=== PATIENT | male | born 1980 | race Two or more races ===

== ENCOUNTER 2020-04-28 11:31 | Outpatient (REF) | payer OTHER, SELFPAY | END 2020-04-28 11:32 | disposition home or self-care (01) | LOC: HO.LAB 11:31 | PROVIDERS: PCP Internal Medicine; Visit Provider Internal Medicine | DX: Z20.828 Contact with and (suspected) exposure to other viral communicable diseases (principal) | CPT/HCPCS: C9803; U0003 ==

== ENCOUNTER 2020-09-04 10:00 | Outpatient (REF) | payer OTHER, SELFPAY | END 2020-09-04 10:01 | disposition home or self-care (01) | LOC: HO.LAB 10:00 | PROVIDERS: Visit Provider Internal Medicine | DX: Z20.822 Contact with and (suspected) exposure to COVID-19 (principal) | CPT/HCPCS: C9803; U0003; U0005 ==

== ENCOUNTER 2021-06-27 16:51 | Emergency (ER) | payer OTHER, SELFPAY ==
[2021-06-27 16:55] VITALS: RESP 18; BMI 28.7
--- NOTE | 2021-06-27 17:33 | ED_ITS ---
HPI - Skin/Abscess/Foreign Bdy General Chief complaint: Skin/Abscess/Foreign Body Stated complaint: came in contact w. scabies/ covid Time Seen by Provider: 06/27/21 17:33 Source: patient Mode of arrival: ambulatory Limitations: no limitations History of Present Illness HPI narrative: Patient is a 41 year old male presenting to the emergency department today after being exposed to scabies, requesting treatment. Patient states that he currently lives in a [facility], where he was exposed to scabies and he would like to be treated. Patient denies any dizziness, lightheadedness, abdominal pain, nausea, vomiting, fever, chills, blurry vision, double vision, loss of vision, chest pain, difficulty breathing, shortness of breath, back pain, night sweats, pain with urination, increased urinary frequency, increased urinary urgency, blood in his urine or stool, syncope or a near syncopal episode, recent trauma or falls, bowel incontinence, bladder incontinence, bowel retention, bladder retention, or any other complaints at this time. Exacerbating factors: none Context: none Associated symptoms: denies other symptoms Treatments prior to arrival: none Related Data Previous Rx's Medication Instructions Recorded ivermectin 3 mg tablet 15 mg PO DAILY 1 Days #1 tab 06/27/21 Allergies Allergy/AdvReac Type Severity Reaction Status Date / Time No Known Allergies Allergy Verified 06/27/21 17:33 Review of Systems Verdana 4l Constitutional: Verdana 4d Verdana 4d Constitutional: Verdana 4d Reports no additional constitutional complaints, Denies chills, Denies fever(s) and Denies night sweats Verdana 4l Eyes: Verdana 4d Verdana 4d Eyes: Verdana 4d Reports no additional eye complaints, Denies blurry vision, Denies change in vision, Denies diplopia, Denies eye discharge, Denies loss of vision and Denies eye pain Verdana 4l ENT: Verdana 4d Denies dizziness Verdana 4l Cardiovascular: Verdana 4d Verdana 4d Cardiovascular: Verdana 4d Reports no additional cardiovascular complaints, Denies chest pain, Denies lightheadedness, Denies Loss of Consciousness and Denies dyspnea Verdana 4l Respiratory: Verdana 4d Verdana 4d Respiratory: Verdana 4d Reports no additional respiratory complaints and Denies dyspnea Verdana 4l Gastrointestinal: Verdana 4d Verdana 4d Gastrointestinal: Verdana 4d Reports no additional gastrointestinal complaints, Denies abdominal pain, Denies melena, Denies hematochezia, Denies change in bowel habits and Denies change in stool character Verdana 4l Genitourinary: Verdana 4d Verdana 4d Genitourinary: Verdana 4d Reports no additional male genitourinary complaints, Denies hematuria, Denies oliguria, Denies difficulty urinating, Denies dysuria, Denies urinary frequency, Denies urinary hesitancy, Denies urinary incontinenceincontinence and Denies urinary urgency Musculoskeletal: Musculoskeletal: Reports no additional musculoskeletal complaints, Denies numbness and Denies tingling Neurologic: Denies dizziness, Denies loss of vision, Denies numbness and Denies tingling Psychiatric: Psychiatric: Reports no additional psychiatric complaints Endocrine: Endocrine: Reports no additional endocrine complaints Hematologic/Lymphatic: Hematologic/Lymphatic: Reports no additional hematologic/lymphatic complaints Allergic/Immunologic: Allergic/Immunologic: Reports no additional allergic/immunologic complaints PMFSH Past Medical History Attestation statement: The following information was validated with the patient. Source: old records reviewed Social History Social History Advance Directives: No Advance Directives Information Provided: No Physical Exam Verdana 4l Vital Signs: Verdana 4d Verdana 4d Vital Signs: Verdana 4d Verdana 4Bd Last Vital Signs Verdana 4d Decorating Consultant New 4d Decorating Consultant New 4d Resp 18 06/27/21 16:55 Verdana 4d Verdana 4Bd BMI result Decorating Consultant New 4d Decorating Consultant New 4d Decorating Consultant NewNew 4d Body Mass Index 28.7 Const: General: cooperative, no acute distress, alert and awake Nutritional Appearance: well nourished Orientation/consciousness: patient oriented x3 Limitations: no limitations HENMT: Head: Yes normal to inspection and Yes atraumatic Ears: hearing grossly normal bilaterally and external ears normal General nose exam: Normal external nose present, no nasal discharge noted and no epistaxis Face and sinus: Yes normal facial exam, No abrasion and No laceration Mouth: Normal oral and palatal mucosa present, no drooling and no muffled voice Eyes: General: appearance normal, both eyes and all related structures Periorbital: periorbital findings normal Eyelids: Yes eyelids normal Conjunctivae: conjunctivae normal Pupils: Equal, round and reactive pupils present EOM: EOMs intact bilaterally Neck: Neck: Yes normal visual inspection, Yes full ROM and Yes no lymphadenopathy Chest: Chest palpation & inspection: normal inspection of the chest Resp: Effort & Inspection: normal respiratory effort and able to speak in complete sentences Auscultation: clear to auscultation bilaterally Cardio: Rate: regular rate Rhythm: regular rhythm GI: Inspection: Yes normal to inspection Neuro: General: patient oriented x3 and moves all extremities Cranial nerves: Yes Equal, round and reactive pupils present Cognition (Neuro): normal cognition Motor exam (neuro): 5/5 motor strength present throughout Sensory Exam: Normal double simultaneous stimulation for sensation Coordination: [id number] test normal Extrem: General: Yes normal to inspection, Yes full ROM and Yes capillary refill normal Psych: Appearance: grossly normal Mental Status: mental status grossly normal Affect: normal affect Attitude: cooperative Thought process: Normal thought process present Thought content: Normal thought content present Insight: Good insight present (Psych) MDM - Skin/Abscess/Foreign Bdy MDM Narrative Medical decision making narrative: Patient is a 41 year old male presenting to the emergency department today requesting scabies treatment after an exposure. Patient's physical exam was unremarkable. I explained my physical exam findings to the patient. I answered all questions asked by the patient. Patient received an oral dose of Ivermectin here in the department with another dose prescribed to be taken in 1 week. I stressed the importance of the patient taking his medication as prescribed. I stressed the importance of the patient following up with his primary care provider. I stressed the importance of the patient returning to the emergency department immediately if his symptoms were to worsen or if he were to develop any dizziness, shortness of breath, difficulty breathing, chest pain, blurry vision, loss of vision, nausea, vomiting, abdominal pain, fever, chills, back pain, or any other complaints. Patient verbalized agreement and understanding with this treatment plan and discharge. Differential Diagnosis Differential diagnosis: Likely insect bites (scabies, bed bugs) Medical Records Attestation: I reviewed the patient's medical records. Discharge Plan Discharge Clinical Impression: Scabies, Scabies exposure Patient Disposition: Home, Self-Care Instructions: Scabies (ED) Additional Instructions: Follow up with your primary care provider. Return to the emergency department immediately if your symptoms worsen or if you develop any dizziness, shortness of breath, difficulty breathing, chest pain, blurry vision, loss of vision, nausea, vomiting, abdominal pain, fever, chills, back pain, or any other complaints. Prescriptions: New ivermectin 3 mg tablet 15 mg PO DAILY 1 Days Qty: 1 0RF Rx Instructions: Take on 07/04/2021 Referrals: Kaitlin Maloney MD [Primary Care Provider] - 2 days Print Language: Wallisian
== END 2021-06-27 18:21 | disposition home or self-care (01) ==
PROVIDERS: Emergency Provider Emergency Medicine Emergency Medical Services; PCP Internal Medicine
DX: B86 Scabies (principal); Z79.899 Other long term (current) drug therapy
CPT/HCPCS: 99283

== ENCOUNTER → 2021-07-28 10:49 | Outpatient (BNVA) | payer OTHER, SELFPAY | PROVIDERS: PCP Internal Medicine; Referring Provider Internal Medicine; Visit Provider Internal Medicine Cardiovascular Disease | DX: I25.5 Ischemic cardiomyopathy (principal); R06.00 Dyspnea, unspecified; Z95.1 Presence of aortocoronary bypass graft | CPT/HCPCS: 93005; 99212 ==

== ENCOUNTER → 2021-09-21 14:10 | Outpatient (REF) | payer OTHER, SELFPAY ==
--- NOTE | 2021-09-21 14:15 | CA_ITS ---
Transthoracic Echocardiogram Patient (Last, First, Middle): Wagner Lancaster, Gender: Male Date of : 1980 Age: 41 Procedure Date: 09/21/2021 Procedure Type: Transthoracic Echocardiogram Location: OP Height: 177.8 cm Weight: 94.8 kg BSA: 2.13 m2 Heart Rate: bpm BP: 128 / 75 mmHg Journeyman Wireman: TO/VH Referring MD: Tenzin Torres MD Symptoms: I25.5 - Ischemic cardiomyopathy Study Quality: Fair Conclusions: - Normal left ventricular cavity size. There is normal left ventricular wall thickness. The left ventricular systolic function is mild to moderately decreased. The visually estimated ejection fraction is between 35-40%. - The inferoseptal wall and apical septum segment are hypokinetic. - The inferior wall, the apex, basal anteroseptal, and mid anteroseptal segments are akinetic. - There is mildly decreased right ventricular systolic function. - The left atrium is moderately dilated. Findings Procedure Information Contrast agent, definity, is being given per protocol without apparent complications. Left Ventricle Normal left ventricular cavity size. There is normal left ventricular wall thickness. The left ventricular systolic function is mild to moderately decreased. The visually estimated ejection fraction is between 35-40%. There is evidence of regional wall motion abnormalities. Abnormal diastolic function is noted. E/E prime ratio is between 8 and 15 consistent with indeterminate filling pressures. Wall Motion Rest Echo Findings The inferoseptal wall and apical septum segment are hypokinetic. The inferior wall, the apex, basal anteroseptal, and mid anteroseptal segments are akinetic. Right Ventricle Normal right ventricular cavity size. There is mildly decreased right ventricular systolic function. Atria The left atrium is moderately dilated. Aortic Valve The aortic valve was not well visualized. There is no aortic valve stenosis. There is no aortic valve regurgitation. Mitral Valve The mitral valve appears normal. There is mild to moderate mitral valve regurgitation. There is no mitral valve stenosis. Pulmonic Valve The pulmonic valve is likely normal. There is trace pulmonic valve regurgitation. Tricuspid Valve Normal tricuspid valve structure. There is trace tricuspid valve regurgitation. Mildly elevated right atrial pressure. There is no evidence of pulmonary hypertension. Great Vessels All visible segments of the aorta are normal in size. The visualized portions of the pulmonary artery and branches are normal. Venous The inferior vena cava is normal in size and collapses less than 50% with inspiration. Pericardium/Pleural There is no evidence of pericardial effusion. Prior Study Comparison No prior study available for comparison. Measurements 2D Linear Measurements IVSd: 1.01 0.6-0.9/0.6-1.0 cm LVIDd: 5.50 3.9-5.3/4.2-5.9 cm LVIDd Index: 2.58 2.4-3.2/2.2-3.1 cm/m2 LVIDs: 5.08 2.0-3.6 cm LVPWd: 1.06 0.7-1.1 cm LA Diam: 4.80 2.7-3.8/3.0-4.0 cm LAIDs Index: 2.25 1.5-2.3 cm/m2 LV Mass: 278.12 67-162/88-224 g LV Mass Index: 130.57 43-95/49-115 g/m2 LVOT Diam: 2.20 3.0+(-)1.3 cm 2D Systolic Function EF 4C: 45.60 >55% EF 2C: 30.50 >55% Mitral Valve MV Pk E: 0.82 MV PK A: 0.79 MV Decel Time: 147.00 E/A: 1.00 E'Lateral: 13.60 E'Medial: 5.44 E/E' Med: 15.10 E/E' Lat: 6.10 PHT: 43.00 MVA PHT: 5.12 Decel Anson: 5.59 Aortic Valve AoV Pk Ángel: 1.44 AoV Mn Ángel: 1.01 AoV VTI: 0.25 AoV Pk Grad: 8.00 Aov Mn Grad: 5.00 JUSTIN Cont.VTI: 2.14 LVOT LVOT Pk Ángel: 0.86 LVOT Mn Ángel: 0.53 LVOT VTI: 0.14 LVOT Pk Grad: 3.00 LVOT Mn Grad: 1.00 LVOT Diam: 2.20 LVOT Area: 3.80 Diastolic Function MV Pk E: 0.82 MV Pk A: 0.79 E/A: 1.00 E'Medial: 5.44 E/E' Med: 15.10 E' Laterial: 13.60 E/E' Lat: 6.10 Right Ventricle TAPSE (mm): 13.60 TVS' Ángel: 7.18 Tricuspid Valve TR Pk Ángel: 2.23 TR Pk Grad: 20.00 RA Press: 3.00 RVSP: 23.00 Great Vessels Aorta Sinus of Valsalva: 3.38 2.0-3.[address] Ridge: 2.33 1.7-3.4 cm Ao Asc: 2.80 2.1-3.4 cm Ao Arch: 3.60 Updated in Other Vendor System with Status of Final Tenzin Torres MD electronically signed on 09/25/2021 11:50:24 PM with status of Final
== END ==
LOC: HO.CARD 14:10
PROVIDERS: PCP Internal Medicine; Visit Provider Internal Medicine Cardiovascular Disease
DX: I25.5 Ischemic cardiomyopathy (principal)
CPT/HCPCS: 93306; Q9957

== ENCOUNTER 2023-05-29 13:30 | Emergency (ER) | payer OTHER, SELFPAY ==
[2023-05-29 13:51] VITALS: BP 155/92; PULSE 87; RESP 17; TEMP 36; O2SAT 99; BMI 29.1
--- NOTE | 2023-05-29 13:52 | ED_ITS ---
HPI - General Adult General Chief complaint: Extremity Problem Stated complaint: Neuropathy-cant walk Source: patient Mode of arrival: ambulatory Limitations: no limitations History of Present Illness HPI narrative: Patient is a 42 year old assigned male at with a history of CABG and ischemic cardiomyopathy presenting to the emergency department today with left lower leg itching and pain. Patient states that over the last few months he has had tingling pain and itchiness in his left lower leg. Patient denies any dizziness, lightheadedness, abdominal pain, nausea, vomiting, fever, chills, blurry vision, double vision, loss of vision, chest pain, difficulty breathing, shortness of breath, back pain, night sweats, pain with urination, increased urinary frequency, increased urinary urgency, blood in his urine or stool, syncope or a near syncopal episode, recent trauma or falls, bowel incontinence, bladder incontinence, bowel retention, bladder retention, or any other complaints at this time. Onset (ago): month(s) Location: left and lower extremity Radiation: non-radiation Severity: mild Severity scale (1-10): 3 Pain Consistency: intermittent Relieving factors: none Exacerbating factors: none Associated symptoms: denies other symptoms Treatments prior to arrival: none Related Data Home Medications Medication Instructions Recorded Confirmed aspirin 81 mg tablet,delayed 81 mg PO DAILY 07/28/21 07/28/21 release atorvastatin 80 mg tablet 80 mg PO DAILY 07/28/21 07/28/21 bupropion HCl 300 mg 24 hr tablet, 300 mg PO DAILY 07/28/21 07/28/21 extended release buspirone 5 mg tablet 5 mg PO BID 07/28/21 07/28/21 carvedilol 3.125 mg tablet 3.125 mg PO BID 07/28/21 07/28/21 clopidogrel 75 mg tablet 75 mg PO DAILY 07/28/21 07/28/21 cyclobenzaprine 10 mg tablet 10 mg PO TID PRN muscle spasm 07/28/21 07/28/21 escitalopram oxalate 20 mg tablet 20 mg PO DAILY 07/28/21 07/28/21 gabapentin 400 mg capsule 400 mg PO TID 07/28/21 07/28/21 lisinopril 10 mg tablet 10 mg PO DAILY 07/28/21 07/28/21 lorazepam 1 mg tablet 1 mg PO BID 07/28/21 07/28/21 metformin 1,000 mg tablet 1,000 mg PO BID 07/28/21 07/28/21 trazodone 100 mg tablet 100 mg PO BEDTIME 07/28/21 07/28/21 Previous Rx's Medication Instructions Recorded ivermectin 3 mg tablet 15 mg (5 x 3 mg) PO DAILY 1 day #1 06/27/21 tab Allergies Allergy/AdvReac Type Severity Reaction Status Date / Time No Known Allergies Allergy Verified 07/28/21 11:01 Review of Systems 2 Constitutional: Constitutional: Reports no additional constitutional complaints, Denies chills, Denies fever(s) and Denies night sweats Eyes: Eyes: Reports no additional eye complaints, Denies blurry vision, Denies change in vision, Denies diplopia, Denies eye discharge, Denies loss of vision and Denies eye pain ENT: Denies dizziness Cardiovascular: Cardiovascular: Reports no additional cardiovascular complaints, Denies chest pain, Denies lightheadedness, Denies Loss of Consciousness and Denies dyspnea Respiratory: Respiratory: Reports no additional respiratory complaints and Denies dyspnea Gastrointestinal: Gastrointestinal: Reports no additional gastrointestinal complaints, Denies abdominal pain, Denies melena, Denies hematochezia, Denies change in bowel habits and Denies change in stool character Genitourinary: Genitourinary: Reports no additional male genitourinary complaints, Denies hematuria, Denies oliguria, Denies difficulty urinating, Denies dysuria, Denies urinary frequency, Denies urinary hesitancy, Denies urinary incontinence and Denies urinary urgency Musculoskeletal: Musculoskeletal: Reports no additional musculoskeletal complaints, Denies numbness and Denies tingling Comments: left lower leg burning and itching Neurologic: Denies dizziness, Denies loss of vision, Denies numbness and Denies tingling Psychiatric: Psychiatric: Reports no additional psychiatric complaints Endocrine: Endocrine: Reports no additional endocrine complaints Hematologic/Lymphatic: Hematologic/Lymphatic: Reports no additional hematologic/lymphatic complaints Allergic/Immunologic: Allergic/Immunologic: Reports no additional allergic/immunologic complaints PMFSH Past Medical History Attestation statement: The following information was validated with the patient. Source: old records reviewed and nursing notes reviewed Onset Date is defined in the Problem List Problems that require an onset date and time if occurred within 24 hrs of arrival to the ED Aortic Dissection and Rupture; Neurologic impairment; Cardiopulmonary Arrest; Endotracheal Intubation; Insertion or Replacement of Mechanical Circulatory Assist Device Surgical History History of cardiac cath History of open heart surgery Family History Family History Mother No problems noted. Father Diabetes Social History Social History Alcohol intake: current Alcohol intake frequency: holidays/special occasions only Patient Tobacco Use Status: Former Tobacco user Quit Date: 2018 Years Smoked: 15 +/- Advance Directives: No Advance Directives Information Provided: No Physical Exam ED Vital Signs: BMI result Body Mass Index 29.1 Const General: cooperative, no acute distress, alert and awake Nutritional Appearance: well nourished Orientation/consciousness: patient oriented x3 Limitations: no limitations HENMT Head: Yes normal to inspection and Yes atraumatic Ears: hearing grossly normal bilaterally and external ears normal General nose exam: Normal external nose present, no nasal discharge noted and no epistaxis Face and sinus: Yes normal facial exam, No abrasion and No laceration Mouth: Normal oral and palatal mucosa present, no drooling and no muffled voice Eyes General: appearance normal, both eyes and all related structures Periorbital: periorbital findings normal Eyelids: Yes eyelids normal Conjunctivae: conjunctivae normal Pupils: Equal, round and reactive pupils present EOM: EOMs intact bilaterally Neck Neck: Yes normal visual inspection, Yes full ROM and Yes no lymphadenopathy Chest Chest palpation & inspection: normal inspection of the chest Resp Effort & Inspection: normal respiratory effort and able to speak in complete sentences GI Inspection: Yes normal to inspection Neuro General: patient oriented x3 and moves all extremities Cranial nerves: Yes Equal, round and reactive pupils present Cognition (Neuro): normal cognition Motor exam (neuro): 5/5 motor strength present throughout Sensory Exam: Normal double simultaneous stimulation for sensation Coordination: [id number] test normal Extrem Other: multiple excoriation type lesions to the anterior left lower leg, no active bleeding, no warmth, no erythema. General: Yes full ROM and Yes capillary refill normal Psych Appearance: grossly normal Mental Status: mental status grossly normal Affect: normal affect Attitude: cooperative Thought process: Normal thought process present Thought content: Normal thought content present Insight: Good insight present (Psych) Course Course Course Narrative: RME performed by Corrie Gallardo PA-C. Patient is a 42 year old assigned male at presenting to the emergency department with left leg pain and swelling. Detailed physical exam and review of systems are deferred to the primary education professor. Labss ordered. Patient placed back in the waiting room pending room availability and results. Medical Decision Making Medical Decision Making [facility] Narrative: Patient is a 42 year old assigned male at with a history of ischemic cardiomyopathy and CABG presenting to the emergency department today with left lower leg itching and burning pain. Patient's limited physical exam performed in triage was as noted in the physical exam portion of this note. Patient's blood work showed a mildly elevated WBC count, ESR, and CRP but were otherwise unremarkable. Patient left the department without completing treatment. Patient left the department before myself or any of the other emergency department clinicians could review or explain physical exam findings, test results, need or lack there of for additional testing, treatment options, or a treatment plan. Differential Diagnosis Differential Diagnoses: The differential diagnosis associated with the presentation includes Left lower leg itching and pain Admission/Observation Consideration of admission/observation: Escalation of care including admission/observation considered Patient would have been admitted to the hospital had his work up had any findings where hospital admission was appropriate, his clinical presentation warranted hospital admission, and he hadn't left the department. Lab Data [facility] Lab Attestation statement: I reviewed the patient's lab results. My interpretation of these results are in the MDM Rationale portion of this note. 05/29/23 14:33 05/29/23 14:32 Labs: Lab Results 05/29/23 05/29/23 Range/Units 14:32 14:33 WBC 12.0 H (4.8-10.8) X10*3/uL RBC 4.74 (4.60-5.80) X10*6/uL Hgb 14.6 (14.0-18.0) g/dl Hct 43.2 (42.0-52.0) % MCV 91.1 (80.0-98.0) fL MCH 30.8 (27.0-33.0) pg MCHC 33.8 (31.0-36.0) g/dl RDW 12.6 (11.0-16.0) % Plt Count 386 (160-400) X10*3/uL MPV 9.3 L (9.4-12.4) fL Immature Gran % (Auto) 0.2 (0.0-0.4) % Neut % (Auto) 66.3 (45-73) % Lymph % (Auto) 25.1 (20-40) % [place] % (Auto) 7.0 (2-11) % Eos % (Auto) 1.2 (0-4) % Baso % (Auto) 0.2 (0-2) % Lymph # (Auto) 3.0 (1.2-4.9) X10*3/uL [place] # (Auto) 0.8 (0.1-1.2) X10*3/uL Eos # (Auto) 0.1 (0.0-0.4) X10*3/uL Baso # (Auto) 0.0 (0.0-0.2) X10*3/uL Abs Immat Gran (auto) 0.03 (0.00-0.03) X10*3/uL Absolute Neuts (auto) 8.0 (2.0-8.3) x10*3/uL Absolute Nucleated RBC 0.000 (0.0-0.012) X10*3/uL Nucleated RBC % (auto) 0.0 (0.0-0.2) /100WBC ESR 26 H (0-15) MM/HR Sodium 135 (135-145) mmol/L Potassium 4.1 (3.3-5.1) mmol/L Chloride 103 (96-108) mmol/L Carbon Dioxide 24 (22-29) mmol/L Anion Gap 12 (12-20) BUN 15 (9-16) mg/dL Creatinine 1.05 (0.5-1.4) mg/dL Estim Creat Clear Calc 105.5 Estimated GFR > 60 Random Glucose 121 H (60-115) mg/dL Calcium 9.9 (8.4-10.2) mg/dL Magnesium 1.9 (1.6-2.6) mg/dL Total Bilirubin 0.6 (0.0-1.0) mg/dL AST 17 (5-37) U/L ALT 15 (0-40) U/L Alkaline Phosphatase 105 (39-117) U/L C-Reactive Protein 0.55 H (< or = 0.50) mg/dL Total Protein 7.6 (6.5-8.0) g/dL Albumin 4.5 (3.5-5.0) g/dL Discharge Plan Discharge Clinical Impression: Acute leg pain Patient Disposition: Left W/O Completing Treatment Prescriptions: No Action ivermectin 3 mg tablet 15 mg PO DAILY 1 Days Qty: 1 0RF Rx Instructions: Take on 07/04/2021 metformin 1,000 mg tablet 1,000 mg PO BID atorvastatin 80 mg tablet 80 mg PO DAILY gabapentin 400 mg capsule 400 mg PO TID buspirone 5 mg tablet 5 mg PO BID aspirin 81 mg tablet,delayed release (DR/EC) 81 mg PO DAILY clopidogrel 75 mg tablet 75 mg PO DAILY lisinopril 10 mg tablet 10 mg PO DAILY cyclobenzaprine 10 mg tablet 10 mg PO TID PRN (Reason: muscle spasm) lorazepam 1 mg tablet 1 mg PO BID bupropion HCl 300 mg tablet extended release 24 hr 300 mg PO DAILY escitalopram oxalate 20 mg tablet 20 mg PO DAILY trazodone 100 mg tablet 100 mg PO BEDTIME carvedilol 3.125 mg tablet 3.125 mg PO BID Discharge Date/Time: 05/29/23 23:56
== END 2023-05-29 23:56 | disposition left against medical advice (07) ==
PROVIDERS: Emergency Provider Emergency Medicine; PCP Internal Medicine
DX: M79.605 Pain in left leg (principal); Z79.899 Other long term (current) drug therapy
CPT/HCPCS: 36415; 80053; 83735; 85025; 85652; 86140; 99281; 99283

== ENCOUNTER 2023-05-31 09:27 | Emergency (ER) | payer OTHER, SELFPAY ==
--- NOTE | ~2023-05-31 | US_ITS ---
EXAMINATION: US VENOUS ULTRASOUND WITH DOPPLER LOWER EXTREMITY, LEFT CLINICAL INFORMATION: Swelling, erythema COMPARISON: None available. TECHNIQUE: Ultrasound of the deep veins is performed from the hip to the calf with compression sonography and color and pulse Doppler assessment. Spectral analysis with color-flow imaging is performed. FINDINGS: The common femoral vein is compressible and exhibits a normal phasic waveform; this suggests that the iliac veins are widely patent above. Within the proximal thigh, the visualized profunda femoris vein is normal. The examined greater saphenous vein and saphenofemoral junction are normal. Superficial femoral vein is patent in the proximal, mid and distal thigh. Popliteal vein is normal to the level of the trifurcation. On compression soler scale and color Doppler images, the posterior tibial and peroneal veins of the calf are normal. A left inguinal lymph node is in the normal size range at 0.8 cm short axis dimension. US/US venous duplex LE LT IMPRESSION: No evidence of deep vein thrombosis.
--- NOTE | ~2023-05-31 | XR_ITS ---
EXAMINATION: XR TIBIA AND FIBULA, LEFT CLINICAL INFORMATION: Erythema, warmth and multiple wounds COMPARISON: None available. TECHNIQUE: AP and lateral views of the left tibia and fibula were obtained. FINDINGS: The bones and soft tissues are normal. No fracture. No osseous lesions. Tiny probable phleboliths noted in the left mid calf. XR/XR tibia fibula LT 2V IMPRESSION: Normal left tibia and fibula.
[2023-05-31 09:49] VITALS: BP 144/95; PULSE 89; RESP 16; TEMP 36.5; O2SAT 98; BMI 29.4
--- NOTE | 2023-05-31 10:24 | ED_ITS ---
HPI - General Adult General Chief complaint: Extremity Injury, Lower Stated complaint: Pain left leg Time Seen by Provider: 05/31/23 10:23 Source: patient Mode of arrival: ambulatory Limitations: no limitations History of Present Illness HPI narrative: Patient is a 42-year-old male with history of T2DM, CABG, cardiomyopathy presenting to the ED with complaint of left lower leg redness, pain and swelling. He reports diffuse ulcerations to bilateral lower legs for the past month, unsure of etiology. States that over the past week the erythema and swelling have worsened, has developed some swelling and tingling to left foot. Denies fevers. Denies drainage from wounds. Came here on 05/29/23, had labs drawn but left from the waiting room due to long wait time. MD complaint: left leg pain Onset (ago): week(s) Location: left and lower extremity Radiation: non-radiation Severity: moderate Quality: burning Pain Consistency: colicky Relieving factors: rest Exacerbating factors: movement and other (palpation) Associated symptoms: denies other symptoms Treatments prior to arrival: none Related Data Home Medications Medication Instructions Recorded Confirmed aspirin 81 mg tablet,delayed 81 mg PO DAILY 07/28/21 07/28/21 release atorvastatin 80 mg tablet 80 mg PO DAILY 07/28/21 07/28/21 bupropion HCl 300 mg 24 hr tablet, 300 mg PO DAILY 07/28/21 07/28/21 extended release buspirone 5 mg tablet 5 mg PO BID 07/28/21 07/28/21 carvedilol 3.125 mg tablet 3.125 mg PO BID 07/28/21 07/28/21 clopidogrel 75 mg tablet 75 mg PO DAILY 07/28/21 07/28/21 cyclobenzaprine 10 mg tablet 10 mg PO TID PRN muscle spasm 07/28/21 07/28/21 escitalopram oxalate 20 mg tablet 20 mg PO DAILY 07/28/21 07/28/21 gabapentin 400 mg capsule 400 mg PO TID 07/28/21 07/28/21 lisinopril 10 mg tablet 10 mg PO DAILY 07/28/21 07/28/21 lorazepam 1 mg tablet 1 mg PO BID 07/28/21 07/28/21 metformin 1,000 mg tablet 1,000 mg PO BID 07/28/21 07/28/21 trazodone 100 mg tablet 100 mg PO BEDTIME 07/28/21 07/28/21 Previous Rx's Medication Instructions Recorded ivermectin 3 mg tablet 15 mg (5 x 3 mg) PO DAILY 1 day #1 06/27/21 tab cephalexin 500 mg capsule 500 mg PO QID #40 caps 05/31/23 doxycycline hyclate 100 mg tablet 100 mg PO BID #20 tabs 05/31/23 Allergies Allergy/AdvReac Type Severity Reaction Status Date / Time No Known Allergies Allergy Verified 07/28/21 11:01 Review of Systems 2 Review of Systems: As per HPI. Yes all other systems are reviewed and are negative Constitutional: Constitutional: Reports as per HPI [facility] Past Medical History Onset Date is defined in the Problem List Problems that require an onset date and time if occurred within 24 hrs of arrival to the ED Aortic Dissection and Rupture; Neurologic impairment; Cardiopulmonary Arrest; Endotracheal Intubation; Insertion or Replacement of Mechanical Circulatory Assist Device Surgical History History of cardiac cath History of open heart surgery Family History Family History Mother No problems noted. Father Diabetes Social History Social History Alcohol intake: current Alcohol intake frequency: holidays/special occasions only Patient Tobacco Use Status: Former Tobacco user Quit Date: 2018 Smoked: 15 +/- Advance Directives: No Advance Directives Information Provided: Yes Physical Exam ED Vital Signs: Vital Signs - 24 hr 05/31/23 09:49 05/31/23 12:03 Temperature 97.7 F 98.5 F Pulse Rate 89 70 Respiratory Rate 16 20 Blood Pressure 144/95 H 132/82 Pulse Oximetry 98 98 Oxygen Delivery Method Room Air Room Air BMI result Body Mass Index 29.4 Vital signs have been reviewed and appear to be correct. Blood pressure elevated. Heart rate normal. Respiratory rate normal. Temperature normal. Oxygen saturation normal. Const General: cooperative, healthy appearing and no acute distress Orientation/consciousness: oriented to person, oriented to place, oriented to time and patient oriented x3 Limitations: no limitations HENMT Head: Yes normocephalic and Yes atraumatic Ears: external ears normal General nose exam: Normal external nose present Face and sinus: Yes face symmetric Mouth: oropharynx normal and moist mucous membranes Throat: Yes uvula midline Eyes Pupils: Equal, round and reactive pupils present Neck Neck: Yes normal visual inspection and Yes supple Resp Effort & Inspection: normal respiratory effort and able to speak in complete sentences Auscultation: clear to auscultation bilaterally Cardio Rate: regular rate Rhythm: regular rhythm Heart sounds: S1 normal heart sound present and S2 normal heart sound present GI Palpation (GI): Soft to palpation and nontender Auscultation: normoactive bowel sounds General: Yes no CVA tenderness Back/Spine/Pelvis Back: no CVA tenderness Skin General skin exam: elasticity normal and turgor normal Neuro General: oriented to person, oriented to place, oriented to time, patient oriented x3, moves all extremities, no focal motor deficits and CN's II-XI intact bilaterally Cranial nerves: Yes Equal, round and reactive pupils present Cognition (Neuro): normal cognition Extrem Other: General: Yes full ROM and Yes no calf tenderness Left lower extremity: lower leg Details: tenderness Location: not of the posterior calf, warmth Location: of the mid lower leg (anterior) and other (multiple lesions with dry, scaly centers, lesion to anterior nayak with surrounding erythema and warmth, scant serosanguinous drainage, see attached photo); no palpable cords and foot Details: vascular exam Details: dorsalis pedis pulse present (2+) and posterior tibial pulse present (2+) Psych Mental Status: mental status grossly normal Affect: normal affect Thought process: Normal thought process present Medical Decision Making Medical Decision Making MDM Narrative: Patient is a 42-year-old male with history of T2DM, CABG, cardiomyopathy presenting to the ED with complaint of left lower leg redness, pain and swelling. On exam patient is awake, A+Ox3, BP elevated, VS otherwise WNL, afebrile, normal neurological exam without focal deficits, physical exam findings as above. Given reported symptoms and physical exam findings, initial differential includes cellulitis, DVT. Less likely osteomyelitis but will obtain x-ray, check ESR, CRP. Labs notable for mild leukocytosis, slightly improved since labs drawn on 05/29/23, CRP slightly elevated, ESR mildly elevated with little change from 05/29. Ultrasound negative for DVT. X-ray notable for no evidence of osteomyelitis. My interpretation is in agreement with the radiologist's interpretation. Will treat for cellulitis with doxycycline and cephalexin. Instructed patient to follow up with PCP and will refer to wound clinic. Return precautions discussed. Patient verbalized understanding of and agreement with plan. Differential Diagnosis Differential Diagnoses: The differential diagnosis associated with the presentation includes As per MDM. Admission/Observation Consideration of admission/observation: Escalation of care including admission/observation considered Lab Data [facility] Lab Attestation statement: I reviewed the patient's lab results. As per MDM. 05/31/23 10:50 05/31/23 10:50 Labs: Lab Results 05/31/23 Range/Units 10:50 WBC 11.3 H (4.8-10.8) X10*3/uL RBC 4.57 L (4.60-5.80) X10*6/uL Hgb 14.0 (14.0-18.0) g/dl Hct 41.7 L (42.0-52.0) % MCV 91.2 (80.0-98.0) fL MCH 30.6 (27.0-33.0) pg MCHC 33.6 (31.0-36.0) g/dl RDW 12.4 (11.0-16.0) % Plt Count 383 (160-400) X10*3/uL MPV 9.1 L (9.4-12.4) fL Immature Gran % (Auto) 0.4 (0.0-0.4) % Neut % (Auto) 67.2 (45-73) % Lymph % (Auto) 23.0 (20-40) % Evans % (Auto) 7.3 (2-11) % Eos % (Auto) 1.8 (0-4) % Baso % (Auto) 0.3 (0-2) % Lymph # (Auto) 2.6 (1.2-4.9) X10*3/uL Evans # (Auto) 0.8 (0.1-1.2) X10*3/uL Eos # (Auto) 0.2 (0.0-0.4) X10*3/uL Baso # (Auto) 0.0 (0.0-0.2) X10*3/uL Abs Immat Gran (auto) 0.04 H (0.00-0.03) X10*3/uL Absolute Neuts (auto) 7.6 (2.0-8.3) x10*3/uL Absolute Nucleated RBC 0.000 (0.0-0.012) X10*3/uL Nucleated RBC % (auto) 0.0 (0.0-0.2) /100WBC ESR 27 H (0-15) MM/HR Sodium 138 (135-145) mmol/L Potassium 4.0 (3.3-5.1) mmol/L Chloride 104 (96-108) mmol/L Carbon Dioxide 23 (22-29) mmol/L Anion Gap 15 (12-20) BUN 10 (9-16) mg/dL Creatinine 0.96 (0.5-1.4) mg/dL Estim Creat Clear Calc 116.0 Estimated GFR > 60 Random Glucose 140 H (60-115) mg/dL Lactic Acid 1.6 (0.5-2.0) mmol/L Calcium 9.7 (8.4-10.2) mg/dL C-Reactive Protein 0.62 H (< or = 0.50) mg/dL Independent Interpretation I performed an independent interpretation of an: Plain X-Ray and Ultrasound Interpretation: No evidence of DVT Radiology Impression Discussion of test interpretation with radiology: I have reviewed the radiologist's reading. Radiologist Impression: US/US venous duplex LE LT IMPRESSION: No evidence of deep vein thrombosis. External Record Review External record reviewed: Inpatient record, Office record and Outpatient record Prescription Management I considered prescription management with: Antibiotic Chronic Conditions Patient?s care impacted by: Diabetes Discharge Plan Discharge Clinical Impression: Cellulitis of left anterior lower leg Patient Disposition: Home, Self-Care Instructions: Cellulitis (DC) Additional Instructions: You have been evaluated in the emergency department today for skin infection, also known as cellulitis. Please take your prescribed antibiotics as directed for the full course of the medication. Assess the infected area daily and return for increasing redness, swelling, warmth, or thick yellow drainage. You can use Tylenol or ibuprofen per package instructions every 6 hours as needed for pain. If necessary, you can alternate these medications so that you can take one medication every 3 hours. For instance, at noon take ibuprofen, then at 3:00 p.m. take Tylenol, then at 6:00 p.m. take ibuprofen. Please schedule an appointment for follow-up with your primary care physician as soon as possible. Return to the emergency department if you experience recurrent vomiting, fevers greater than 100.4? F, increasing area of redness, warmth around the area, foul- smelling discharge from the area, increased tenderness around the area, or any other concerning symptoms. You are being referred to the Wound Care clinic for further management, please call to schedule an appointment. Prescriptions: New doxycycline hyclate 100 mg tablet 100 mg PO BID Qty: 20 0RF cephalexin 500 mg capsule 500 mg PO QID Qty: 40 0RF No Action ivermectin 3 mg tablet 15 mg PO DAILY 1 Days Qty: 1 0RF Rx Instructions: Take on 07/04/2021 metformin 1,000 mg tablet 1,000 mg PO BID atorvastatin 80 mg tablet 80 mg PO DAILY gabapentin 400 mg capsule 400 mg PO TID buspirone 5 mg tablet 5 mg PO BID aspirin 81 mg tablet,delayed release (DR/EC) 81 mg PO DAILY clopidogrel 75 mg tablet 75 mg PO DAILY lisinopril 10 mg tablet 10 mg PO DAILY cyclobenzaprine 10 mg tablet 10 mg PO TID PRN (Reason: muscle spasm) lorazepam 1 mg tablet 1 mg PO BID bupropion HCl 300 mg tablet extended release 24 hr 300 mg PO DAILY escitalopram oxalate 20 mg tablet 20 mg PO DAILY trazodone 100 mg tablet 100 mg PO BEDTIME carvedilol 3.125 mg tablet 3.125 mg PO BID Referrals: [facility] [place] Wound Care Management [Provider Group]
[2023-05-31 11:06] LABS: Basophils Percent Auto 0.3 % (0-2); Eosinophils Absolute Auto 0.2 X10*3/uL (0.0-0.4); Eosinophils Percent Auto 1.8 % (0-4); Hematocrit 41.7 % (42.0-52.0); Imm Gran Abs Auto 0.04 X10*3/uL (0.00-0.03); Imm Gran Pct Auto 0.4 % (0.0-0.4); Lymphocytes Absolute Auto 2.6 X10*3/uL (1.2-4.9); MANUAL DIFF FLAG NO; Mean Corpuscular HGB Conc 33.6 g/dl (31.0-36.0); Mean Corpuscular Hemoglobin 30.6 pg (27.0-33.0); Mean Corpuscular Volume 91.2 fL (80.0-98.0); Mean Platelet Volume 9.1 fL (9.4-12.4); Monocytes Absolute Auto 0.8 X10*3/uL (0.1-1.2); Monocytes Percent Auto 7.3 % (2-11); Neutrophils Absolute Auto 7.6 x10*3/uL (2.0-8.3); Neutrophils Percent Auto 67.2 % (45-73); Platelet Count 383 X10*3/uL (160-400); Red Blood Count 4.57 X10*6/uL (4.60-5.80); Red Cell Distribution Width 12.4 % (11.0-16.0); White Blood Count 11.3 X10*3/uL (4.8-10.8)
[2023-05-31 11:16] LABS: Lactic Acid 1.6 mmol/L (0.5-2.0)
[2023-05-31 11:20] LABS: Anion Gap 15 (12-20); Blood Urea Nitrogen 10 mg/dL (9-16); Calcium 9.7 mg/dL (8.4-10.2); Carbon Dioxide 23 mmol/L (22-29); Chloride 104 mmol/L (96-108); Estimated Glomerular Filt Rate > 60; Glucose Random 140 mg/dL (60-115); Sodium 138 mmol/L (135-145)
[2023-05-31 11:21] LABS: C Reactive Protein 0.62 mg/dL (< or = 0.50)
[2023-05-31 11:51] LABS: Erythrocyte Sedimentation Rate 27 MM/HR (0-15)
[2023-05-31 12:03] VITALS: BP 132/82; PULSE 70; RESP 20; TEMP 36.9; O2SAT 98
== END 2023-05-31 12:51 | disposition home or self-care (01) ==
PROVIDERS: Registered Nurse Emergency; Emergency Provider Emergency Medicine
DX: L03.116 Cellulitis of left lower limb (principal); M79.605 Pain in left leg; Z95.1 Presence of aortocoronary bypass graft; Z79.82 Long term (current) use of aspirin; Z79.02 Long term (current) use of antithrombotics/antiplatelets; Z79.899 Other long term (current) drug therapy; Z79.84 Long term (current) use of oral hypoglycemic drugs
CPT/HCPCS: 36415; 73590; 80048; 83605; 85025; 85652; 86140; 87040; 93971; 99283; 99284

== ENCOUNTER 2023-06-15 09:20 | Emergency (ER) | payer OTHER, SELFPAY ==
--- NOTE | ~2023-06-15 | XR_ITS ---
EXAMINATION: XR TIBIA AND FIBULA, LEFT CLINICAL INFORMATION: Multiple wounds with drainage COMPARISON: 05/31/2023 TECHNIQUE: AP and lateral views of the left tibia and fibula were obtained. FINDINGS: Tibia and fibula are intact. No fracture, erosions or periostitis. Bones have normal alignment at the knee and ankle. No evidence of knee or ankle joint effusion. The knee joint spaces are maintained. An area of soft tissue swelling is seen in the pretibial region of the mid leg. Also, there appears to be mild soft tissue swelling in the lower medial leg. No soft tissue gas. There are scattered atherosclerotic peripheral vascular calcifications. XR/XR tibia fibula LT 2V IMPRESSION: * No evidence of osteomyelitis in the tibia or fibula. * An area of mild soft tissue swelling in the pretibial region likely corresponds to site of a soft tissue wound. There is no radiopaque foreign body or soft tissue gas in this region.
--- NOTE | 2023-06-15 09:56 | ED_ITS ---
HPI - General Adult General Chief complaint: Extremity Injury, Lower Stated complaint: l leg pain Time Seen by Provider: 06/15/23 09:39 Source: patient Mode of arrival: ambulatory Limitations: no limitations History of Present Illness HPI narrative: Patient is a 43-year-old male with history of DM presenting to the emergency department with complaint of worsening infection to his left lower leg. Patient was recently treated with a course of doxycycline and Keflex and states that after finishing his antibiotics his symptoms worsened. Also complains of burning pain radiating to his toes. Denies any calf pain or swelling. Denies fevers/chills/sweats. States the wound has continued to drain reddish brown fluid. He did not follow-up with the Wound Care Clinic as directed at previous visit. MD complaint: left leg infection Onset (ago): week(s) Location: left and lower extremity Severity: moderate Quality: burning Pain Consistency: intermittent Relieving factors: rest Exacerbating factors: movement Associated symptoms: denies other symptoms Treatments prior to arrival: other (Antibiotics) Related Data Home Medications Medication Instructions Recorded Confirmed aspirin 81 mg tablet,delayed 81 mg PO DAILY 07/28/21 07/28/21 release atorvastatin 80 mg tablet 80 mg PO DAILY 07/28/21 07/28/21 bupropion HCl 300 mg 24 hr tablet, 300 mg PO DAILY 07/28/21 07/28/21 extended release buspirone 5 mg tablet 5 mg PO BID 07/28/21 07/28/21 carvedilol 3.125 mg tablet 3.125 mg PO BID 07/28/21 07/28/21 clopidogrel 75 mg tablet 75 mg PO DAILY 07/28/21 07/28/21 cyclobenzaprine 10 mg tablet 10 mg PO TID PRN muscle spasm 07/28/21 07/28/21 escitalopram oxalate 20 mg tablet 20 mg PO DAILY 07/28/21 07/28/21 gabapentin 400 mg capsule 400 mg PO TID 07/28/21 07/28/21 lisinopril 10 mg tablet 10 mg PO DAILY 07/28/21 07/28/21 lorazepam 1 mg tablet 1 mg PO BID 07/28/21 07/28/21 metformin 1,000 mg tablet 1,000 mg PO BID 07/28/21 07/28/21 trazodone 100 mg tablet 100 mg PO BEDTIME 07/28/21 07/28/21 Previous Rx's Medication Instructions Recorded ivermectin 3 mg tablet 15 mg (5 x 3 mg) PO DAILY 1 day #1 06/27/21 tab cephalexin 500 mg capsule 500 mg PO QID #40 caps 05/31/23 doxycycline hyclate 100 mg tablet 100 mg PO BID #20 tabs 05/31/23 mupirocin 2 % topical ointment 1 appl topical TID 2 weeks #15 06/15/23 grams Allergies Allergy/AdvReac Type Severity Reaction Status Date / Time No Known Allergies Allergy Verified 06/15/23 09:57 Review of Systems 2 Review of Systems: As per HPI. Yes all other systems are reviewed and are negative Constitutional: Constitutional: Reports as per HPI [facility] Past Medical History Surgical History History of cardiac cath History of open heart surgery Family History Family History Mother No problems noted. Father Diabetes Social History Social History Alcohol intake: current Alcohol intake frequency: holidays/special occasions only Patient Tobacco Use Status: Former Tobacco user Quit Date: 2018 Years Smoked: 15 +/- Advance Directives: No Physical Exam ED Vital Signs: Vital Signs - 24 hr 06/15/23 09:57 06/15/23 12:00 06/15/23 14:25 Temperature 97.3 F 97.9 F 98.0 F Pulse Rate 79 60 65 Respiratory Rate 16 16 16 Blood Pressure 125/92 H 126/72 120/71 Pulse Oximetry 99 98 99 Oxygen Delivery Method Room Air Room Air Room Air BMI result Body Mass Index 29.2 Vital signs have been reviewed and appear to be correct. Blood pressure normal. Heart rate normal. Respiratory rate normal. Temperature normal. Oxygen saturation normal. Const General: cooperative, healthy appearing and no acute distress Orientation/consciousness: oriented to person, oriented to place, oriented to time and patient oriented x3 Limitations: no limitations HENMT Head: Yes normocephalic and Yes atraumatic Ears: external ears normal General nose exam: Normal external nose present Face and sinus: Yes face symmetric Mouth: oropharynx normal and moist mucous membranes Throat: Yes uvula midline Eyes Pupils: Equal, round and reactive pupils present Neck Neck: Yes normal visual inspection and Yes supple Resp Effort & Inspection: normal respiratory effort and able to speak in complete sentences Auscultation: clear to auscultation bilaterally Cardio Rate: regular rate Rhythm: regular rhythm Heart sounds: S1 normal heart sound present and S2 normal heart sound present GI Palpation (GI): Soft to palpation and nontender Auscultation: normoactive bowel sounds General: Yes no CVA tenderness Back/Spine/Pelvis Back: no CVA tenderness Skin General skin exam: elasticity normal and turgor normal Neuro General: oriented to person, oriented to place, oriented to time, patient oriented x3, moves all extremities, no focal motor deficits and CN's II-XI intact bilaterally Cranial nerves: Yes Equal, round and reactive pupils present Cognition (Neuro): normal cognition Extrem Other: General: Yes full ROM, Yes no pedal edema and Yes no calf tenderness Left lower extremity: lower leg Details: tenderness Location: of the midshaft tibia, localized swelling Location: of the mid lower leg, no edema, warmth Location: of the mid lower leg and other (multiple wounds of varying sizes, see attached photo); inspection abnormal and foot Details: vascular exam Details: dorsalis pedis pulse present and posterior tibial pulse present Psych Mental Status: mental status grossly normal Affect: normal affect Thought process: Normal thought process present Medications Administered Discontinued Medications Generic Name Dose Route Start Last Admin Trade Name Freq PRN Reason Stop Dose Admin Acetaminophen 975 mg 06/15/23 12:11 06/15/23 12:14 Acetaminophen 325 Mg Tablet PO 06/15/23 12:12 975 mg ONCE ONE Administration Medical Decision Making Medical Decision Making [facility] Narrative: Patient is a 43-year-old male with history of DM presenting to the emergency department with complaint of worsening infection to his left lower leg. On exam patient is awake, A+Ox3, VS WNL, afebrile, normal neurological exam without focal deficits, physical exam findings as above. Given reported symptoms and physical exam findings, initial differential includes cellulitis, osteomyelitis. Labs notable for mild leukocytosis, normal ESR and CRP, no lactic acidosis. X- ray notable for no evidence of osteomyelitis, no gas noted. My interpretation is in agreement with the radiologist's interpretation. Given patient's history of diabetes and failed outpatient antibiotics, feel patient requires admission for IV antibiotics. Case discussed with Dr. Mcneal, hospitalist, who feels patient likely does not require admission and will be evaluated and then decision will be made. Patient seen by Dr. Sebastian who recommends wound care follow up, possible eschar removal. Case discussed with Dr. Palomino as well who agrees with wound care follow up, recommends topical mupirocin, no additional PO antibiotics. Plan discussed with patient who is agreeable to this. Return precautions discussed at bedside. Differential Diagnosis Differential Diagnoses: The differential diagnosis associated with the presentation includes As per MDM. Admission/Observation Consideration of admission/observation: Escalation of care including admission/observation considered Consult Healthcare Provider Management of the patient was discussed with: Hospitalist (Dr. Mcneal) Lab Data [facility] Lab Attestation statement: I reviewed the patient's lab results. As per MDM. 06/15/23 10:22 06/15/23 10:22 Labs: Lab Results 06/15/23 Range/Units 10:22 WBC 12.4 H (4.8-10.8) X10*3/uL RBC 4.69 (4.60-5.80) X10*6/uL Hgb 14.6 (14.0-18.0) g/dl Hct 43.3 (42.0-52.0) % MCV 92.3 (80.0-98.0) fL MCH 31.1 (27.0-33.0) pg MCHC 33.7 (31.0-36.0) g/dl RDW 12.6 (11.0-16.0) % Plt Count 438 H (160-400) X10*3/uL MPV 9.1 L (9.4-12.4) fL Immature Gran % (Auto) 0.4 (0.0-0.4) % Neut % (Auto) 63.9 (45-73) % Lymph % (Auto) 28.3 (20-40) % Cooke % (Auto) 5.6 (2-11) % Eos % (Auto) 1.5 (0-4) % Baso % (Auto) 0.3 (0-2) % Lymph # (Auto) 3.5 (1.2-4.9) X10*3/uL [place]oke # (Auto) 0.7 (0.1-1.2) X10*3/uL Eos # (Auto) 0.2 (0.0-0.4) X10*3/uL Baso # (Auto) 0.0 (0.0-0.2) X10*3/uL Abs Immat Gran (auto) 0.05 H (0.00-0.03) X10*3/uL Absolute Neuts (auto) 7.9 (2.0-8.3) x10*3/uL Absolute Nucleated RBC 0.000 (0.0-0.012) X10*3/uL Nucleated RBC % (auto) 0.0 (0.0-0.2) /100WBC ESR 13 (0-15) MM/HR Sodium 138 (135-145) mmol/L Potassium 4.4 (3.3-5.1) mmol/L Chloride 105 (96-108) mmol/L Carbon Dioxide 25 (22-29) mmol/L Anion Gap 12 (12-20) BUN 10 (9-16) mg/dL Creatinine 0.96 (0.5-1.4) mg/dL Estim Creat Clear Calc 114.4 Estimated GFR > 60 Random Glucose 143 H (60-115) mg/dL Lactic Acid 1.3 (0.5-2.0) mmol/L Calcium 10.2 (8.4-10.2) mg/dL C-Reactive Protein < 0.10 (< or = 0.50) mg/dL Independent Interpretation I performed an independent interpretation of an: Plain X-Ray Interpretation: No evidence of osteomyelitis Radiology Impression Discussion of test interpretation with radiology: I have reviewed the radiologist's reading. Radiologist Impression: XR/XR tibia fibula LT 2V IMPRESSION: * No evidence of osteomyelitis in the tibia or fibula. * An area of mild soft tissue swelling in the pretibial region likely corresponds to site of a soft tissue wound. There is no radiopaque foreign body or soft tissue gas in this region. External Record Review External record reviewed: Inpatient record, Office record and Outpatient record Prescription Management I considered prescription management with: Antibiotic Chronic Conditions Patient?s care impacted by: Diabetes Discharge Plan Discharge Clinical Impression: Leg wound, left Patient Disposition: Home, Self-Care Instructions: Wound Infection (DC), Wound Healing and Your Diet (ED) Additional Instructions: You were evaluated in the emergency department today for wounds of your left lower leg. Your evaluation did not show evidence of medical conditions requiring emergent medical treatment at this time. YOU ARE AGAIN BEING REFERRED TO THE WOUND CLINIC, IT IS IMPERATIVE THAT YOU FOLLOW-UP WITH THEM TO SCHEDULE AN APPOINTMENT. Return to the emergency department if you develop increasing redness, swelling, thick yellow drainage, fevers or any other concerning symptoms. Prescriptions: New mupirocin 2 % ointment 1 appl topical TID 14 Days Qty: 15 0RF No Action ivermectin 3 mg tablet 15 mg PO DAILY 1 Days Qty: 1 0RF Rx Instructions: Take on 07/04/2021 doxycycline hyclate 100 mg tablet 100 mg PO BID Qty: 20 0RF cephalexin 500 mg capsule 500 mg PO QID Qty: 40 0RF metformin 1,000 mg tablet 1,000 mg PO BID atorvastatin 80 mg tablet 80 mg PO DAILY gabapentin 400 mg capsule 400 mg PO TID buspirone 5 mg tablet 5 mg PO BID aspirin 81 mg tablet,delayed release (DR/EC) 81 mg PO DAILY clopidogrel 75 mg tablet 75 mg PO DAILY lisinopril 10 mg tablet 10 mg PO DAILY cyclobenzaprine 10 mg tablet 10 mg PO TID PRN (Reason: muscle spasm) lorazepam 1 mg tablet 1 mg PO BID bupropion HCl 300 mg tablet extended release 24 hr 300 mg PO DAILY escitalopram oxalate 20 mg tablet 20 mg PO DAILY trazodone 100 mg tablet 100 mg PO BEDTIME carvedilol 3.125 mg tablet 3.125 mg PO BID Referrals: [facility] [place] [facility] [Provider Group]
[2023-06-15 09:57] VITALS: BP 125/92; PULSE 79; RESP 16; TEMP 36.3; O2SAT 99; BMI 29.2
--- NOTE | 2023-06-15 10:00 | PC.NURSE ---
leg being swabbed by glass washer and carrier. blood cultures being drawn at bedside at this time
[2023-06-15 10:30] LABS: MANUAL DIFF FLAG NO
[2023-06-15 10:38] LABS: Basophils Percent Auto 0.3 % (0-2); Eosinophils Absolute Auto 0.2 X10*3/uL (0.0-0.4); Eosinophils Percent Auto 1.5 % (0-4); Hematocrit 43.3 % (42.0-52.0); Hemoglobin 14.6 g/dl (14.0-18.0); Imm Gran Abs Auto 0.05 X10*3/uL (0.00-0.03); Imm Gran Pct Auto 0.4 % (0.0-0.4); Lymphocytes Absolute Auto 3.5 X10*3/uL (1.2-4.9); Lymphocytes Percent Auto 28.3 % (20-40); Mean Corpuscular HGB Conc 33.7 g/dl (31.0-36.0); Mean Corpuscular Hemoglobin 31.1 pg (27.0-33.0); Mean Corpuscular Volume 92.3 fL (80.0-98.0); Mean Platelet Volume 9.1 fL (9.4-12.4); Monocytes Absolute Auto 0.7 X10*3/uL (0.1-1.2); Monocytes Percent Auto 5.6 % (2-11); Neutrophils Absolute Auto 7.9 x10*3/uL (2.0-8.3); Neutrophils Percent Auto 63.9 % (45-73); Platelet Count 438 X10*3/uL (160-400); Red Blood Count 4.69 X10*6/uL (4.60-5.80); Red Cell Distribution Width 12.6 % (11.0-16.0); White Blood Count 12.4 X10*3/uL (4.8-10.8)
[2023-06-15 10:54] LABS: Lactic Acid 1.3 mmol/L (0.5-2.0)
[2023-06-15 10:58] LABS: Anion Gap 12 (12-20); Blood Urea Nitrogen 10 mg/dL (9-16); C Reactive Protein < 0.10 mg/dL (< or = 0.50); Calcium 10.2 mg/dL (8.4-10.2); Carbon Dioxide 25 mmol/L (22-29); Chloride 105 mmol/L (96-108); Creatinine Clr Calc Pharmacy 114.4; Estimated Glomerular Filt Rate > 60; Glucose Random 143 mg/dL (60-115); Potassium 4.4 mmol/L (3.3-5.1); Sodium 138 mmol/L (135-145)
[2023-06-15 11:22] LABS: Erythrocyte Sedimentation Rate 13 MM/HR (0-15)
[2023-06-15 12:00] VITALS: BP 126/72; PULSE 60; RESP 16; TEMP 36.6; O2SAT 98
[2023-06-15] MEDS: Acetaminophen 325 MG TABLET 975 MG PO (12:14)
[2023-06-15 14:25] VITALS: BP 120/71; PULSE 65; RESP 16; TEMP 36.7; O2SAT 99
[2023-06-15 16:00] VITALS: BP 116/67; PULSE 58; RESP 16; TEMP 36.1; O2SAT 98
== END 2023-06-15 16:16 | disposition home or self-care (01) ==
PROVIDERS: Registered Nurse Emergency; Emergency Provider Emergency Medicine; PCP Internal Medicine
DX: S81.802A Unspecified open wound, left lower leg, initial encounter (principal); M79.662 Pain in left lower leg; X58.XXXA Exposure to other specified factors, initial encounter; Y93.89 Activity, other specified; Y92.9 Unspecified place or not applicable; Y99.9 Unspecified external cause status; Z79.899 Other long term (current) drug therapy
CPT/HCPCS: 36415; 73590; 80048; 83605; 85025; 85652; 86140; 87040; 87070; 87077; 87186; 87205; 99283; 99284

== ENCOUNTER 2023-07-06 11:03 | Outpatient (RCR) | payer OTHER, SELFPAY | END 2024-04-12 14:03 | disposition home or self-care (01) | LOC: HO.WCC 11:03 | PROVIDERS: PCP Internal Medicine; Visit Provider Physician Assistant | DX: Z09 Encounter for follow-up examination after completed treatment for conditions other than malignant neoplasm (principal); E11.51 Type 2 diabetes mellitus with diabetic peripheral angiopathy without gangrene; I87.2 Venous insufficiency (chronic) (peripheral); Z87.2 Personal history of diseases of the skin and subcutaneous tissue | CPT/HCPCS: 11042; 11043; 11045; 15271; 29580; 97597; 99212; Q4186; Q4187 ==